=== PATIENT | male | born 1995 | race African-American/Black ===

== ENCOUNTER 2017-07-11 14:31 | Emergency (ER) | payer MEDICAID ==
[~2017-07-11] VITALS: Ht 188 cm; Wt 110.0 kg
[2017-07-11 18:59] VITALS: BP 143/93
== END 2017-07-11 19:00 | disposition home or self-care (01) ==
LOC: ER 14:44
DX: F41.0 Panic disorder [episodic paroxysmal anxiety] (principal); R45.4 Irritability and anger; F31.9 Bipolar disorder, unspecified; F90.9 Attention-deficit hyperactivity disorder, unspecified type; F17.210 Nicotine dependence, cigarettes, uncomplicated; F12.90 Cannabis use, unspecified, uncomplicated
CPT/HCPCS: 99284